=== PATIENT | female | born 1950 | race Caucasian/White ===

== ENCOUNTER 2017-07-09 05:15 | Inpatient (IN) | payer OTHER ==
[2017-06-16 13:10] VITALS: Ht 156.2 cm; Wt 124.0 kg
--- NOTE | 2017-06-16 13:38 | PAT Medication Instructions ---
Service Date Jun 16, 2017. Current Home Medication List Acetaminophen (Tylenol), 1,000 MG PO PRN Atorvastatin (Lipitor), 40 MG PO QAM Lisinopril & Hydrochlorothiazi (Zestoretic 20-12.5 mg), 1 TAB PO QAM Metformin Hcl (Glucophage), 1,000 MG PO QAM Warfarin Sod (Jantoven), 4 MG PO QPM Medication Instructions For Your Scheduled Surgery -Contact your autos disassembler and your prescriber for instructions for: Warfarin Sod (Jantoven), 4 MG PO QPM - Hold the following medications the morning of surgery: Lisinopril & Hydrochlorothiazi (Zestoretic 20-12.5 mg), 1 TAB PO QAM Metformin Hcl (Glucophage), 1,000 MG PO QAM - Take the following medications the morning of surgery with a sip of water: Acetaminophen (Tylenol), 1,000 MG PO PRN Atorvastatin (Lipitor), 40 MG PO QAM - Take the following medications as scheduled the night before surgery: Acetaminophen (Tylenol), 1,000 MG PO PRN (if needed) If you have any questions please call us at [phone] or [phone] or [phone]
[2017-06-16 14:34] LABS: BASO % 0.3 %; BASO ABS # 0.02 K/uL (0-0.2); EOS % 2.4 %; EOS ABS # 0.14 K/uL (0-0.5); HEMATOCRIT 41.6 % (37-47); HEMOGLOBIN 13.4 g/dL (12.0-16.0); IG# 0.01 K/uL (0.00-0.02); LYMPH % 30.9 %; LYMPH ABS # 1.83 K/uL (1.2-3.4); MEAN CELL VOLUME 91.4 fL (80-100); MEAN CORPUSCULAR HEMOGLOBIN 29.5 pg (25-34); MEAN CORPUSCULAR HGB CONC 32.2 g/dl (32-36); MEAN PLATELET VOLUME 9.5 fL (7.4-10.4); MONO % 5.4 %; MONO ABS # 0.32 K/uL (0.11-0.59); NEUT % 60.8 %; NEUT ABS # 3.61 K/uL (1.4-6.5); PLATELET COUNT 272 K/uL (130-400); RED CELL DISTRIBUTION WIDTH CV 13.8 % (11.5-14.5); WHITE BLOOD COUNT 5.93 K/uL (4.8-10.8)
[2017-06-16 14:41] LABS: INR 1.7 (0.9-1.1); PTT PATIENT 30.6 SECONDS (21.0-31.0)
--- NOTE | 2017-06-16 15:00 | DIAGNOSTIC IMAGING REPORT ---
CHEST 2 VIEWS ROUTINE HISTORY: Preop. COMPARISON: Chest 03/16/2015. FINDINGS: There are low lung volumes. Bibasilar linear densities suggestive of subsegmental atelectasis. No focal lung consolidations to suggest pneumonia. No evidence for pulmonary edema. No pleural effusions. No pneumothorax. The heart is mildly enlarged. This remains unchanged. Increased density at the lung bases likely secondary to overlapping soft tissue. IMPRESSION: No significant change compared to the prior study. No acute process. Stable mild cardiomegaly. Electronically signed by: George Camejo M.D. 06/16/2017 2:59 PM Dictated Date/Time: 06/16/2017 2:51 PM
[2017-06-16 16:05] LABS: ALBUMIN 3.5 gm/dl (3.4-5.0); CALCIUM 9.9 mg/dl (8.5-10.1); CREATININE 0.68 mg/dl (0.60-1.20); POTASSIUM 4.4 mmol/L (3.5-5.1)
[2017-06-17 06:18] LABS: HEMOGLOBIN A1C 5.8 % (4.5-5.6)
--- NOTE | 2017-07-08 18:12 | HISTORY & PHYSICAL EXAMINATION ---
DATE OF ADMISSION: 07/09/2017 CHIEF COMPLAINT: Chronic left knee pain. HISTORY OF PRESENT ILLNESS: This is a 67-year-old female patient of Dr. Johnson'zoie complaining of chronic left knee pain, longstanding, now progressively getting worse. The patient has failed conservative treatment including intra-articular injection, over the counter anti-inflammatories, the use of a cane. She is currently on Coumadin. The patient has increased pain with weightbearing activities and her pain does interfere with her activities of daily living. PAST MEDICAL HISTORY: Hypertension, hypercholesterolemia, history of pulmonary embolism, diabetes mellitus, rheumatoid arthritis, osteoarthritis, sciatica, and obesity. SOCIAL HISTORY: Nonsmoker, nondrinker. PAST SURGICAL HISTORY: Right total knee replacement. FAMILY HISTORY: Noncontributory. REVIEW OF SYSTEMS: The patient complains of chronic left knee pain; otherwise, denies any shortness of breath, chest pain, nausea, vomiting or any other joint complaints. MEDICATIONS: Metformin 1000 mg b.i.d., warfarin 5 mg daily as directed, atorvastatin 40 mg daily, and lisinopril 20 mg/12.5 daily. ALLERGIES: No known drug allergies. PHYSICAL EXAMINATION: GENERAL: Well-developed, well-nourished 67-year-old female, in no acute distress. She is alert and oriented x3 and pleasant. HEENT: Normocephalic, atraumatic. Extraocular motions are intact. Pupils are equal and reactive to light. HEART: Regular rate and rhythm, no murmurs appreciated. LUNGS: Clear. ABDOMEN: Soft and nontender. Bowel sounds are present. EXTREMITIES: Left knee reveals limited range of motion is 0-100. She has a varus deformity with crepitation. She has 4/5 strength. NEUROLOGIC: Neurovascularly, she is intact in her left lower extremity. DIAGNOSES: Left knee end-stage osteoarthritis, hypertension, hypercholesterolemia, history of pulmonary embolism, diabetes mellitus, rheumatoid arthritis, osteoarthritis, sciatica, and obesity. PLAN: The patient was advised of her diagnosis. Indications, risks, benefits, postop course have all been reviewed. The patient wished to proceed with a left total knee arthroplasty. Necessary consent form, preoperative testing and clearances will be obtained.
[2017-07-09] VITALS (9 sets, daily range): BP systolic 108–165; BP diastolic 67–83; PULSE 67–88; TEMP 36.7–37.3; O2SAT 91–98
[~2017-07-09] VITALS: Ht 156.2 cm; Wt 124.0 kg
[~2017-07-09 05:15] MED LIST: ACET-1256 PO; ATOR10TA82 PO; LISI-787 PO; METF-384 PO; WARF4TAB8 PO
[2017-07-09] MEDS ORDERED: lovenox (05:53)
[2017-07-09] MEDS ORDERED: LACTATED RINGER'S 1000ML 1,000 ML IV SCH (06:00)
[2017-07-09] MEDS ORDERED: FAMOTIDINE 20 MG TAB PO SCH (06:00)
[2017-07-09] MEDS ORDERED: LACTATED RINGER'S 1000ML 500 ML IV SCH (06:00)
[2017-07-09] MEDS ORDERED: CEFAZOLIN 3000MG IV PUSH 22.5 ML IV SCH (06:00)
[2017-07-09] MEDS ORDERED: CeleBREX 200 MG CAP PO SCH (06:00)
[2017-07-09] MEDS ORDERED: METOCLOPRAMIDE HCL 10 MG TAB PO SCH (06:00)
[2017-07-09] MEDS ORDERED: GABAPENTIN 300 MG CAP PO SCH (06:00)
[2017-07-09] MEDS ORDERED: ACETAMINOPHEN 500 MG TAB PO SCH (06:00)
[2017-07-09] MEDS ORDERED: ROPIVACAINE 5MG/ML 30 ML 150 MG, BUPIVACAINE 0.5% MPF INJ 30 ML, EpINEphrine HCL INJ 0.... INFIL SCH ×7 (06:00)
[2017-07-09] MEDS ORDERED: BUPIVACAINE 0.5 % 5 MG/1 ML PF 10ML VIAL ONE (06:15)
[2017-07-09] MEDS ORDERED: BUPIVACAINE 0.25% 30 ML VIAL ONE (06:15)
[2017-07-09] MEDS ORDERED: MIDAZOLAM HCL 1 MG/ML 2ML VIAL ONE (06:22)
[2017-07-09] MEDS ORDERED: FENTANYL CITRATE INJ 50 MCG/1 ML 2 ML VIAL ONE ×3 (06:22→08:08)
[2017-07-09] MEDS ORDERED: PROPOFOL IV EMULSION 10 MG/ML 20 ML VIAL IV ONE (06:22)
[2017-07-09 06:29] LABS: INR 1.1 (0.9-1.1); PTT PATIENT 27.8 SECONDS (21.0-31.0)
[2017-07-09] MEDS ORDERED: POVIDONE-IODINE OP SOLN 30 ML BTL ONE (06:55)
[2017-07-09] MEDS ORDERED: BACITRACIN 50000 UNIT VIAL ONE (06:55)
[2017-07-09] MEDS ORDERED: ORTHO JOINT ANESTHETIC ONE (06:55)
[2017-07-09] MEDS ORDERED: FENTANYL CITRATE INJ 50 MCG/1 ML 2 ML VIAL IV PRN (07:15)
[2017-07-09] MEDS ORDERED: EpHEDrine SULFATE INJ 50 MG/ML AMP IV PRN (07:15)
[2017-07-09] MEDS ORDERED: ONDANSETRON INJ 2 MG/ML 2 ML VIAL IV PRN ×2 (07:15→10:00)
[2017-07-09] MEDS ORDERED: ATROPINE SULFATE 0.1 MG/ML 5ML SYR IV PRN (07:15)
--- NOTE | 2017-07-09 07:17 | History & Physical Bridge Note ---
H&P Re-Evaluation Bridge Note: I have examined the patient, reviewed the History & Physical and in the interval since the performance of the History & Physical I have noted the following changes of clinical significance: No changes noted
[2017-07-09] MEDS ORDERED: SUCCINYLCHOLINE 100MG/5ML SYR IV ONE (07:56)
[2017-07-09] MEDS ORDERED: ONDANSETRON INJ 2 MG/ML 2 ML VIAL ONE (07:59)
[2017-07-09] MEDS ORDERED: DEXAMETHASONE SOD INJ 4 MG/ML VIAL ONE (07:59)
--- NOTE | 2017-07-09 09:33 | [facility] Post Operative Brief Note ---
Immediate Operative Summary Operative Date Jul 09, 2017. Pre-Operative Diagnosis Degenerative Joint Disease Left Knee Post-Operative Diagnosis Same as preop Procedure(s) Performed Left Total Knee arthroplasty,superficial wound vac Surgeon Dr. Aliyah Johnson Pipe Fitter Soft Copper Surgeon(s) Daniella Lafleur PAC Estimated Blood Loss 200ML Findings Consistent with Post-Op Diagnosis Specimens Left knee bone and tissue Drains 2 hemovac and superficial wound vac Anesthesia Type General Complication(s) none Disposition Disposition: Recovery Room / PACU
[2017-07-09] MEDS ORDERED: ZOLPIDEM TARTRATE 5 MG TAB PO PRN (10:00)
[2017-07-09] MEDS ORDERED: METOCLOPRAMIDE HCL INJ 5 MG/ML 2 ML VIAL IV PRN (10:00)
[2017-07-09] MEDS ORDERED: BISACODYL 10 MG SUPP PR PRN (10:00)
[2017-07-09] MEDS ORDERED: SOD PHOSPHATE/SOD BIPHOSPHATE ENEMA 132 ML BTL PR PRN (10:00)
[2017-07-09] MEDS ORDERED: MAGNESIUM HYDROXIDE SUSP 30 ML UDC PO PRN (10:00)
[2017-07-09] MEDS ORDERED: TRAMADOL HCL 50 MG TAB PO PRN (10:00)
[2017-07-09] MEDS ORDERED: MoRPHine SULFATE 2 MG/ML CARP IV PRN (10:00)
--- NOTE | 2017-07-09 10:34 | Anesthesiology Progress Note ---
Anesthesia Post Op Note Date & Time Jul 09, 2017 at 10:34 Vital Signs Pain Intensity: 4 Vital Signs Past 12 Hours Date Time Temp Pulse Resp B/P (MAP) Pulse Ox O2 Delivery O2 Flow Rate FiO2 07/09/17 10:33 37.6 07/09/17 10:31 139/60 07/09/17 10:27 67 23 07/09/17 10:27 66 23 95 07/09/17 10:26 122/54 07/09/17 10:22 69 23 07/09/17 10:22 69 23 95 07/09/17 10:21 124/57 07/09/17 10:17 69 23 95 07/09/17 10:17 69 23 07/09/17 10:16 74 22 145/58 95 07/09/17 10:16 74 22 07/09/17 10:11 75 18 07/09/17 10:11 77 18 129/61 95 07/09/17 10:06 73 30 07/09/17 10:06 75 30 135/57 94 07/09/17 10:01 72 22 07/09/17 10:01 74 22 142/63 96 07/09/17 09:57 144/64 07/09/17 09:56 37.3 74 15 144/64 94 Oxymask 15 07/09/17 09:56 78 20 07/09/17 09:56 81 20 94 07/09/17 06:00 37.3 88 18 165/73 93 Room Air Notes Mental Status: alert / awake / arousable, participated in evaluation Pt Amnestic to Procedure: Yes Nausea / Vomiting: adequately controlled Pain: adequately controlled Airway Patency, RR, SpO2: stable & adequate BP & HR: stable & adequate Hydration State: stable & adequate Neuraxial Anesthesia: was administered, sensory block is resolving Anesthetic Complications: no major complications apparent
--- NOTE | 2017-07-09 10:41 | DIAGNOSTIC IMAGING REPORT ---
LEFT KNEE 2 VIEWS History: Left total knee arthroplasty. Degenerative arthritis. Postop. FINDINGS: The patient is status post a left total knee arthroplasty. The hardware is intact. No fracture or dislocation. Skin bo and surgical drains are in place. IMPRESSION: Left total knee arthroplasty. No evidence for hardware complication. Electronically signed by: George Camejo M.D. 07/09/2017 10:39 AM Dictated Date/Time: 07/09/2017 10:38 AM
[2017-07-09] MEDS ORDERED: DEXTROSE 50% 50 ML SYR IV PRN ×2 (11:45→16:45)
[2017-07-09] MEDS ORDERED: GLUCOSE 10 TABS/TUBE PO PRN ×2 (11:45→16:45)
[2017-07-09] MEDS ORDERED: GLUCOSE 40% GEL 15 GM TUBE PO PRN ×2 (11:45→16:45)
[2017-07-09] MEDS ORDERED: GLUCAGON FOR INJ 1 MG VIAL SQ PRN ×2 (11:45→16:45)
[2017-07-09] MEDS ORDERED: INSULIN ASPART 100 UNITS/ML 3 ML PEN SC SCH (12:00)
[2017-07-09] MEDS ORDERED: MoRPHine SULFATE 4 MG/ML 1 ML CARP\\VIAL IV PRN ×2 (12:00→18:30)
[2017-07-09] MEDS: SODIUM CHLORIDE 0.9% 1000ML 1,000 ML IV SCH ×2 (13:25→21:45)
[2017-07-09] MEDS: ACETAMINOPHEN 500 MG TAB PO SCH ×2 (13:27→21:45)
[2017-07-09] MEDS ORDERED: NURSING VERBAL MED ORDER ONE ×3 (14:00→20:30)
--- NOTE | 2017-07-09 15:34 | [facility] Operative Report ---
Operative Report Operative Date Jul 09, 2017. Pre-Operative Diagnosis Degenerative Joint Disease Left Knee, obesity 50.8 BMI Post-Operative Diagnosis Same, obesity 50.8 BMI Procedure(s) Performed Left total knee arthroplasty application superficial wound VAC Surgeon Dr. Aliyah Johnson Core Worker Surgeon(s) Daniella Lafleur PAC Estimated Blood Loss 200ML Findings Severe tricompartmental DJD notch stenosis chronic ACL tear grade 4 medial compartment bone loss medial compartment medial femoral subluxation on tibia grade 3-4 patellofemoral DJD, varus knee Specimens Left knee bone and tissue Drains 2 hemovac and superficial wound vac Anesthesia General regional orthomix Complication(s) None Disposition Recovery Room / PACU Indications 67-year-old female history of obesity very severe bilateral knee DJD successful right knee replacement and now with disabling left knee pain wants proceed with left knee replacement Description of Procedure The patient was taken to the operating room and anesthetized under general anesthetic regional block. Patient was placed supine on the the operating table. A pneumatic tourniquet was placed about the left upper thigh. The knee exam demonstrated very limited range of motion full extension but flexion only to 90. The left lower extremity was prepped and draped with ChloraPrep in usual sterile fashion. An anterior longitudinal incision was made across the knee. Skin flaps were elevated. An incision was made into the medial retinaculum and extended up into the mid third of the quadriceps tendon and extended down to the tibial tubercle. Intra-articular findings demonstrated severe tricompartmental DJD bone loss medial compartment medial tibial plateau chronic ACL tear notch stenosis tricompartmental osteophytes severe. The knee was exposed by excising the posterior cruciate ligament and menisci. The infrapatellar fat pad was resected. The fat pad over the anterior femur at the upper aspect of the articular surface was resected for placement of the component in that area. A subperiosteal peel lateral release was performed around the patella. Some partial synovectomy was performed in the suprapatellar pouch area. The everyArtn total knee arthroplasty system was utilized for the procedure. The drill hole was made into the intramedullary canal and the guide lucio was placed. Standard distal femoral cut was made in 5 valgus. The sizing guide was placed and the femur sized for a 5 component. Drill holes were made in 3 of external rotation to match epicondylar axis. She had some AP ML mismatch but 5 was the best fit. The size 5 ,4 in 1 cutting block was placed. The anterior posterior and chamfer cuts were made. The knee was extended and a free hand cut technique was performed to the patella. The patella with was measured and the width was reproduced using a 33 x 9 mm patella component. 3 drill holes are made for the patella component pegs. The tibia was then subluxed. The external tibial cutting guide was pinned in position and the proximal tibial cut was made with the oscillating saw. The size 4 tibial trial was externally rotated in line with the tibial tubercle and pinned in position. The punch for the stem was used and the femoral notch cutting device was positioned appropriately and the notch cut was made and the femoral trial was placed. Tibial trials were used for the insert. The size 13 trial gave balanced ligaments through full range of motion. Patella tracking was assessed with range of motion. The patella tracked centrally. The trials were removed. The Orthomix anesthetic cocktail was injected per protocol. The cut bone surfaces and soft tissue were copiously irrigated with antibiotic solution with bacitracin. The final components were cemented with Simplex cement. The final components were Striker triathlon 5 left posterior stabilized femoral component for primary tibial baseplate 4 x 13 mm posterior stabilized X3 poly-insert S 33 x 9 mm X3 poly-patella. While the cement cured the Betadine soak was used per protocol. When the cement cured the knee was copiously irrigated with pulsatile lavage antibiotic solution with bacitracin. 2 drains were brought out laterally connected to Hemovac. The quadriceps tendon and medial retinaculum were closed with interrupted figure-of- eight #1 Vicryl sutures. The knee was taken through full range of motion and repair was secure. The subcutaneous tissues were closed with 2-0 Vicryl sutures. The skin was closed with bo. A superficial wound VAC was applied. The tourniquet was let down and the patient had good capillary refill to the extremity. The patient tolerated the procedure well. My physician certified medical technician assistant Mike ROBLES assisted in the procedure including prepping draping leg positioning soft tissue retraction instrument management and assisted in the closure ,dressings application and will participate in postoperative care the patient. I attest to the content of the Intraoperative Record and any orders documented therein. Any exceptions are noted below.
[2017-07-09] MEDS: CEFAZOLIN IV 2,000 MG in SYRINGE 0 ML IV SCH (16:29)
[2017-07-09] MEDS: INSULIN ASPART 100 UNITS/ML 3 ML PEN SC SCH ×2 (18:08→20:57)
[2017-07-09] MEDS ORDERED: WARFARIN TAB 10 MG, WARFARIN TAB 2.5 MG PO ONE ×4 (18:45→21:00)
--- NOTE | 2017-07-09 19:34 | Medical Consult ---
Consultation Date of Consultation: Jul 09, 2017. Attending Physician: Oleksandr Johnson M.D. Reason for Consultation: Medical management History of Present Illness Pt is 67 y/o F with PMH PE on coumadin, DM II, HTN, HLD, OA, obesity is seen in medical consult. Pt s/p L TKA by Dr Johnson. Pt reports pain controlled. Denies any numbness/tingling to LLE. Pt coumadin was held and on lovenox bridge. Her coumadin to be resumed tonight and lovenox BID. Last BM last night. Eating and drinking well. Denies fever/chills, diaphoresis, N/V/D/C, SYKES, dizziness, syncope , vision changes, neck pain, CP, SOB, orthopnea, palpitations, cough, sore throat, choking, otalgia, rhinorrhea, abdominal pain, extremity edema, rashes, urinary symptoms. Past Medical/Surgical History Medical Problems: (1) Diabetes mellitus Status: Chronic (2) Dyslipidemia Status: Chronic (3) Fatty tumor Permanent Comment: removed from left foot Status: Resolved (4) HTN (hypertension) Status: Chronic (5) Left knee DJD Status: Chronic (6) Pulmonary embolism Status: Chronic Surgical Problems: (1) Hx of arthroscopy of left knee Status: Resolved (2) Hx of arthroscopy of right knee Permanent Comment: 2015 Status: Resolved Family History FH: CAD (coronary artery disease) Social History Smoking Status: Never Smoker Smokeless Tobacco Use: No Alcohol Use: none Drug Use: none Marital Status: Housing Status: lives with significant other Allergies Coded Allergies: No Known Allergies (Unverified , 07/09/17) Current Inpatient Medications Current Inpatient Medications Medications (Trade) Dose Ordered Sig/Geronimo Route Start Time Stop Time Status Last Admin Dose Admin Lactated Ringer's 1,000 ml @ 15 mls/hr Q24H IV 07/09/17 06:00 07/10/17 05:59 Cefazolin Sodium 22.5 ml @ 4.5 mls/min PREOP IV 07/09/17 06:00 07/09/17 18:00 07/09/17 07:26 4.5 MLS/MIN Acetaminophen (Tylenol Tab) 1,000 mg PREOP PO 07/09/17 06:00 07/09/17 18:00 07/09/17 06:13 1,000 MG Celecoxib (CeleBREX CAP) 200 mg PREOP PO 07/09/17 06:00 07/09/17 18:00 07/09/17 06:13 200 MG Famotidine (Pepcid Tab) 20 mg PREOP PO 07/09/17 06:00 07/09/17 18:00 07/09/17 06:13 20 MG Gabapentin (Neurontin Cap) 300 mg PREOP PO 07/09/17 06:00 07/09/17 18:00 07/09/17 06:12 300 MG Metoclopramide HCl (Reglan Tab) 10 mg PREOP PO 07/09/17 06:00 07/09/17 18:00 07/09/17 06:12 10 MG Atorvastatin Calcium (Lipitor Tab) 40 mg QAM PO 07/10/17 09:00 08/09/17 08:59 HCTZ/Lisinopril (Prinzide 20-12.5MG Tab) 1 tab QAM PO 07/10/17 09:00 08/09/17 08:59 Warfarin Sodium (Coumadin Tab) 4 mg QPM PO 07/09/17 21:00 08/08/17 20:59 Sodium Chloride 1,000 ml @ 100 mls/hr Q10H IV 07/09/17 11:45 07/10/17 11:44 07/09/17 13:25 100 MLS/HR Cefazolin Sodium 2000 mg/Syringe 15 ml @ 3.75 mls/ min Q8H IV 07/09/17 16:00 07/10/17 00:03 07/09/17 16:29 3.75 MLS/MIN Oxycodone HCl (Roxicodone Immediate Rel Tab) 1 TABLET FOR PAIN RATING... Q4H PRN PO 07/09/17 10:00 07/23/17 09:59 Morphine Sulfate (MoRPHine SULFATE INJ) 2 mg Q2H PRN IV 07/09/17 10:00 07/23/17 09:59 Acetaminophen (Tylenol Tab) 1,000 mg Q8 PO 07/09/17 14:00 08/08/17 13:59 07/09/17 13:27 1,000 MG Magnesium Hydroxide (Milk Of Magnesia Susp) 30 ml Q6H PRN PO 07/09/17 10:00 08/08/17 09:59 Bisacodyl (Dulcolax Supp) 10 mg DAILY PRN [place] 07/09/17 10:00 08/08/17 09:59 Sodium Biphosphate/ Sodium Phosphate (Fleet Enema) 132 ml DAILY PRN [place] 07/09/17 10:00 08/08/17 09:59 Docusate Sodium (coLACE CAP) 100 mg BID PO 07/09/17 21:00 08/08/17 20:59 Diphenhydramine HCl (Benadryl Cap) 25 mg Q8H PRN PO 07/09/17 10:00 08/08/17 09:59 Zolpidem Tartrate (Ambien Tab) 5 mg HSZ PRN PO 07/09/17 10:00 08/08/17 09:59 Multivitamins (Multivitamin Tab) 1 tab QAM PO 07/10/17 09:00 08/09/17 08:59 Ondansetron HCl (Zofran Inj) 4 mg Q6H PRN IV 07/09/17 10:00 08/08/17 09:59 Metoclopramide HCl (Reglan Inj) 10 mg Q6H PRN IV 07/09/17 10:00 08/08/17 09:59 Pantoprazole Sodium (Protonix Tab) 40 mg QAM PO 07/10/17 09:00 07/13/17 09:01 Tramadol HCl (Ultram Tab) 1 tablet for pain rating... Q4H PRN PO 07/09/17 10:00 08/08/17 09:59 Insulin Aspart (novoLOG ASPART) SLIDING SCALE G... ACHS SC 07/09/17 12:00 08/08/17 11:59 07/09/17 13:28 4 UNITS Glucose (Glucose 40% Gel) 15-30 GRAMS 15 GRAMS... UD PRN PO 07/09/17 11:45 08/08/17 11:44 Glucose (Glucose Chew Tab) 4-8 Tablets 4 Tabl... UD PRN PO 07/09/17 11:45 08/08/17 11:44 Dextrose (Dextrose 50% 50ML Syringe) 25-50ML OF 50% DW IV FOR... UD PRN IV 07/09/17 11:45 08/08/17 11:44 Glucagon (Glucagon Inj) 1 mg UD PRN SQ 07/09/17 11:45 08/08/17 11:44 Morphine Sulfate (MoRPHine SULFATE INJ) 2 mg Q2H PRN IV 07/09/17 12:00 07/23/17 11:59 Enoxaparin Sodium (Lovenox Inj) 120 mg Q12 SQ 07/10/17 09:00 08/09/17 08:59 Insulin Aspart (novoLOG ASPART) SLIDING SCALE If C... ACHS SC 07/09/17 17:15 08/08/17 17:14 UNV Glucose (Glucose 40% Gel) 15-30 GRAMS 15 GRAMS... UD PRN PO 07/09/17 16:45 08/08/17 16:44 UNV Glucose (Glucose Chew Tab) 4-8 Tablets 4 Tabl... UD PRN PO 07/09/17 16:45 08/08/17 16:44 UNV Dextrose (Dextrose 50% 50ML Syringe) 25-50ML OF 50% DW IV FOR... UD PRN IV 07/09/17 16:45 08/08/17 16:44 UNV Glucagon (Glucagon Inj) 1 mg UD PRN SQ 07/09/17 16:45 08/08/17 16:44 UNV Review of Systems See HPI for pertinent positives & negatives. All other systems reviewed and were otherwise negative Physical Exam Date Time Temp Pulse Resp B/P (MAP) Pulse Ox O2 Delivery O2 Flow Rate FiO2 07/09/17 14:56 36.9 72 16 132/81 (98) 95 Nasal Cannula 3.0 07/09/17 13:33 36.8 68 16 145/83 (103) 95 3.0 07/09/17 12:19 75 16 153/79 (103) 95 3.0 07/09/17 11:23 69 16 127/70 (89) 98 3.0 07/09/17 11:00 Nasal Cannula 3.0 07/09/17 11:00 36.7 70 18 131/72 (91) 97 Nasal Cannula 3.0 07/09/17 11:00 Nasal Cannula 3.0 07/09/17 10:42 66 23 07/09/17 10:42 65 23 95 07/09/17 10:41 124/60 3/8/18 10:37 60 23 07/09/17 10:37 68 23 95 07/09/17 10:36 130/60 07/09/17 10:33 37.6 07/09/17 10:32 70 24 07/09/17 10:32 68 24 96 07/09/17 10:31 139/60 07/09/17 10:27 67 23 07/09/17 10:27 66 23 95 07/09/17 10:26 122/54 07/09/17 10:22 69 23 07/09/17 10:22 69 23 95 07/09/17 10:21 124/57 07/09/17 10:17 69 23 95 07/09/17 10:17 69 23 07/09/17 10:16 74 22 145/58 95 07/09/17 10:16 74 22 07/09/17 10:11 75 18 07/09/17 10:11 77 18 129/61 95 07/09/17 10:06 73 30 07/09/17 10:06 75 30 135/57 94 07/09/17 10:01 72 22 07/09/17 10:01 74 22 142/63 96 07/09/17 09:57 144/64 07/09/17 09:56 37.3 74 15 144/64 94 Oxymask 15 07/09/17 09:56 78 20 07/09/17 09:56 81 20 94 07/09/17 06:00 37.3 88 18 165/73 93 Room Air General Appearance: no apparent distress, + obese Head: normocephalic, atraumatic Eyes: normal inspection, PERRL, EOMI, sclerae normal ENT: hearing grossly normal, pharynx normal, + pertinent finding (mucous membranes moist) Neck: supple, no JVD, trachea midline Respiratory/Chest: lungs clear, normal breath sounds, no respiratory distress Cardiovascular: regular rate, rhythm, no murmur, normal peripheral pulses Abdomen/GI: normal bowel sounds, non tender, soft Extremities/Musculoskelatal: normal capillary refill, no pedal edema, + pertinent finding (Left knee with dressing in place and limited active flexion, remaining extremities with ROM intact. pedal pushes and pulls intact bilaterally. distal pulses intact, sensation to light touch intact) Neurologic/Psych: alert, normal mood/affect, oriented x 3 Skin: normal color, warm/dry Laboratory Results Last 24 Hours Test 07/09/17 05:49 07/09/17 06:00 07/09/17 10:04 07/09/17 11:29 Bedside Glucose 112 mg/dl 155 mg/dl 145 mg/dl Prothrombin Time 11.5 SECONDS Prothromb Time International Ratio 1.1 Activated Partial Thromboplast Time 27.8 SECONDS Partial Thromboplastin Ratio 1.1 Assessment & Plan Pt post op day# 0 S/P L TKA by Dr Johnson -pain management per ortho -wound management per ortho -PT/OT as appropriate -DVT prophylaxis per ortho -incentive spirometry -monitor H&H for acute blood loss anemia HX PE ON COUMADIN Pt had coumadin held, bridged with lovenox for surgery. Denies CP/SOB. Vitals stable. Coumadin clinic note reviewed and recommends coumadin 12.5mg on 07/09/17 & 07/10/17, then 10mg on 07/11/17, then resuming pt's current schedule of 7.5mg MWF , and 5mg all other days. -will dose coumadin tonight with lovenox bridge until therapeutic. Monitor INR and dose Coumadin accordingly DM II HA1c 5.8 in 06/2017 -hold metformin -NovoLog sliding scale per protocol HTN stable -continue lisinopril/HCTZ HYPERLIPIDEMIA -continue atorvastatin DVT Prophylaxis -lovenox, coumadin Disposition admitted med/surg Full Code as per discussion with pt Follows with S[facility] Post for routine care Pt was seen with Dr Ndiaye. See addendum Attending addendum. The patient was seen and examined by me this afternoon. Status post left TKA. She does not have any complaint except some pain in the left knee. She denies of any chest pain shortness of breath any palpitations, has not had any abdominal pain nausea and/or vomiting, denies to have any numbness or tingling in the extremities. On examination. She is hemodynamically stable. Her labs are unremarkable. She seems to be reasonably stable at this time. Her labs and imaging studies reviewed. Assessment and plan reviewed as well. Agree with assessment and plan Dr. Liv Ndiaye. Additional Copies To Sohan Webber PA-C
[2017-07-09] MEDS: WARFARIN SOD 4 MG TAB PO SCH (20:57)
[2017-07-09] MEDS ORDERED: WARFARIN SOD 4 MG TAB PO SCH (21:00)
[2017-07-09] MEDS ORDERED: WARFARIN SOD 10 MG TAB PO ONE (21:00)
[2017-07-09] MEDS: DOCUSATE SODIUM 100 MG CAP PO SCH (21:03)
[2017-07-10] VITALS (7 sets, daily range): BP systolic 132–139; BP diastolic 72–88; PULSE 70–78; TEMP 36.3–36.9; O2SAT 93–97
[2017-07-10] MEDS: CEFAZOLIN IV 2,000 MG in SYRINGE 0 ML IV SCH (00:25)
[2017-07-10] MEDS: OXYCODONE HCL IR 5 MG TAB (IMMEDIATE RELEASE) PO PRN ×4 (00:26→20:55)
[2017-07-10] MEDS: ACETAMINOPHEN 500 MG TAB PO SCH ×3 (05:59→21:43)
[2017-07-10 07:08] LABS: HEMATOCRIT 32.4 % (37-47); HEMOGLOBIN 10.5 g/dL (12.0-16.0); MEAN CELL VOLUME 91.5 fL (80-100); MEAN CORPUSCULAR HEMOGLOBIN 29.7 pg (25-34); MEAN CORPUSCULAR HGB CONC 32.4 g/dl (32-36); PLATELET COUNT 220 K/uL (130-400); RED CELL DISTRIBUTION WIDTH CV 14.4 % (11.5-14.5); RED CELL DISTRIBUTION WIDTH SD 48.4 fL (36.4-46.3); WHITE BLOOD COUNT 7.52 K/uL (4.8-10.8)
[2017-07-10 07:14] LABS: INR 1.1 (0.9-1.1)
[2017-07-10 07:44] LABS: CALCIUM 8.5 mg/dl (8.5-10.1); CREATININE 0.72 mg/dl (0.60-1.20); POTASSIUM 4.1 mmol/L (3.5-5.1)
[2017-07-10] MEDS: SODIUM CHLORIDE 0.9% 1000ML 1,000 ML IV SCH (08:05)
--- NOTE | 2017-07-10 08:11 | Orthopedic Progress Note ---
Orthopedic Progress Note Date of Service Jul 10, 2017. Subjective Post OP Day: 1 Reports: feeling well, pain controlled w PO medications, Denies: complaints, chest pain, SOB, nausea / vomiting, calf pain Objective calves soft nontender, N/V intact, capillary refill less than 2 sec., dressing C /D/I, A&O x3, toes mobile Date Time Temp Pulse Resp B/P (MAP) Pulse Ox O2 Delivery O2 Flow Rate FiO2 07/10/17 07:55 36.7 78 16 132/86 (101) 97 Room Air 07/10/17 02:58 36.3 71 16 139/73 (95) 93 Room Air 07/10/17 00:17 Room Air 07/09/17 22:42 36.9 67 15 108/67 (81) 91 Room Air 07/09/17 18:37 36.9 68 18 142/81 (101) 92 Room Air 07/09/17 18:19 94 Room Air 07/09/17 15:20 Nasal Cannula 3.0 07/09/17 14:56 36.9 72 16 132/81 (98) 95 Nasal Cannula 3.0 07/09/17 13:33 36.8 68 16 145/83 (103) 95 3.0 07/09/17 12:19 75 16 153/79 (103) 95 3.0 07/09/17 11:23 69 16 127/70 (89) 98 3.0 07/09/17 11:00 Nasal Cannula 3.0 07/09/17 11:00 36.7 70 18 131/72 (91) 97 Nasal Cannula 3.0 07/09/17 11:00 Nasal Cannula 3.0 07/09/17 10:42 66 23 07/09/17 10:42 65 23 95 07/09/17 10:41 124/60 07/09/17 10:37 60 23 07/09/17 10:37 68 23 95 07/09/17 10:36 130/60 07/09/17 10:33 37.6 07/09/17 10:32 70 24 07/09/17 10:32 68 24 96 07/09/17 10:31 139/60 07/09/17 10:27 67 23 07/09/17 10:27 66 23 95 07/09/17 10:26 122/54 07/09/17 10:22 69 23 07/09/17 10:22 69 23 95 07/09/17 10:21 124/57 07/09/17 10:17 69 23 95 07/09/17 10:17 69 23 07/09/17 10:16 74 22 145/58 95 07/09/17 10:16 74 22 07/09/17 10:11 75 18 07/09/17 10:11 77 18 129/61 95 07/09/17 10:06 73 30 07/09/17 10:06 75 30 135/57 94 07/09/17 10:01 72 22 07/09/17 10:01 74 22 142/63 96 07/09/17 09:57 144/64 07/09/17 09:56 37.3 74 15 144/64 94 Oxymask 15 07/09/17 09:56 78 20 07/09/17 09:56 81 20 94 Laboratory Results 24 Hours: Test 07/10/17 06:37 Hematocrit 32.4 % Hemoglobin 10.5 g/dL Prothromb Time International Ratio 1.1 Prothrombin Time 11.3 SECONDS Assessment & Plan Assessment: POD #1, Left TKA Plan: PT/ OT DVT proph- Coumadin, Lovenox D/C plans- Home w HH As per medicine. Inhouse Planning Pain Management: Ultram, Morphine, PO Tylenol, Oxy IR DVT Prophylaxis: TEDs, SCDs, Coumadin, Lovenox Discharge Planning Discharge Planning: home with home health Pain Management: PO Tylenol, Oxy IR DVT Prophylaxis: TEDs, Coumadin, Lovenox Therapy: Physical Therapy, Occupational Therapy
[2017-07-10] MEDS: INSULIN ASPART 100 UNITS/ML 3 ML PEN SC SCH ×4 (09:00→20:57)
[2017-07-10] MEDS: ENOXAPARIN 120 MG/0.8 ML SYR SQ SCH ×2 (09:04→20:58)
[2017-07-10] MEDS: DOCUSATE SODIUM 100 MG CAP PO SCH ×2 (09:11→20:57)
[2017-07-10] MEDS: ATORVASTATIN 40 MG TAB PO SCH (09:11)
[2017-07-10] MEDS: MULTIVITAMIN TAB PO SCH (09:12)
[2017-07-10] MEDS: LISINOPRIL/HCTZ 20/12.5MG TAB PO SCH (09:12)
[2017-07-10] MEDS: PANTOprazole SOD 40 MG TAB PO SCH (09:13)
--- NOTE | 2017-07-10 10:04 | Anesthesiology Progress Note ---
Anesthesia Post Op Note Date & Time Jul 10, 2017 at 10:04 Vital Signs Pain Intensity: 8.0 Vital Signs Past 12 Hours Date Time Temp Pulse Resp B/P (MAP) Pulse Ox O2 Delivery O2 Flow Rate FiO2 07/10/17 07:55 36.7 78 16 132/86 (101) 97 Room Air 07/10/17 02:58 36.3 71 16 139/73 (95) 93 Room Air 07/10/17 00:17 Room Air 07/09/17 22:42 36.9 67 15 108/67 (81) 91 Room Air Notes Mental Status: alert / awake / arousable, participated in evaluation Pt Amnestic to Procedure: Yes Nausea / Vomiting: adequately controlled Pain: adequately controlled, improving with treatment Airway Patency, RR, SpO2: stable & adequate BP & HR: stable & adequate Hydration State: stable & adequate Anesthetic Complications: no major complications apparent
[2017-07-10] MEDS: WARFARIN SOD 4 MG TAB PO SCH (15:36)
[2017-07-10] MEDS ORDERED: WARFARIN TAB 10 MG, WARFARIN TAB 2.5 MG PO SCH ×2 (16:00)
[2017-07-10] MEDS ORDERED: WARFARIN SOD 10 MG TAB PO ONE (16:00)
--- NOTE | 2017-07-10 18:24 | Progress Note ---
Internal Med Progress Note Date of Service: Jul 10, 2017. Provider Documentation: SUBJECTIVE: The patient was seen and examined S/P Left TKA Minimal pain No other symptoms OBJECTIVE: Vital Signs-as noted below Exam: General-No distress at rest Eyes-normal ENT-normal Neck-supple Lungs-Clear to auscultate bilaterally Heart-Regular,no murmur Abdomen-Benign Extremities-tarec edema bilaterally Neuro-AAox3 Lab data as noted below. ASSESSMENT & PLAN: Pt post op day# 1 S/P L TKA by Dr Johnson -pain management per ortho,wound management per ortho -PT/OT as appropriate -DVT prophylaxis per ortho -incentive spirometry -monitor H&H -minimally decreased Hb -will recheck in AM HX PE ON COUMADIN Pt had coumadin held, bridged with lovenox for surgery. Denies CP/SOB. Vitals stable. Coumadin clinic note reviewed and recommends coumadin 12.5mg on 07/09/17 & 07/10/17, then 10mg on 07/11/17, then resuming pt's current schedule of 7.5mg MWF , and 5mg all other days. -will dose Coumadin tonight with lovenox bridge until therapeutic. -Monitor INR and dose Coumadin accordingly -will take a few days to stabilize DM II HA1c 5.8 in 06/2017 -hold metformin -NovoLog sliding scale per protocol -Blood sugar is maintained HTN -continue lisinopril/HCTZ -controlled HYPERLIPIDEMIA -continue atorvastatin DVT Prophylaxis -Lovenox, Coumadin Disposition admitted med/surg Full Code as per discussion with pt Follows with Sohan Post for routine care Vital Signs: Date Time Temp Pulse Resp B/P (MAP) Pulse Ox O2 Delivery O2 Flow Rate FiO2 07/10/17 15:30 96 Room Air 07/10/17 15:21 36.9 76 18 137/81 (99) 96 Room Air 07/10/17 11:37 36.6 75 16 132/88 (103) 93 Room Air 07/10/17 10:17 97 Room Air 07/10/17 07:55 36.7 78 16 132/86 (101) 97 Room Air 07/10/17 07:50 Room Air 07/10/17 02:58 36.3 71 16 139/73 (95) 93 Room Air 07/10/17 00:17 Room Air 07/09/17 22:42 36.9 67 15 108/67 (81) 91 Room Air 07/09/17 18:37 36.9 68 18 142/81 (101) 92 Room Air Lab Results: Results Past 24 Hours Test 07/09/17 20:37 07/10/17 06:37 07/10/17 08:09 07/10/17 12:05 Range/Units Bedside Glucose 130 104 116 70-90 mg/dl White Blood Count 7.52 4.8-10.8 K/uL Red Blood Count 3.54 4.2-5.4 M/uL Hemoglobin 10.5 12.0-16.0 g/dL Hematocrit 32.4 37-47 % Mean Corpuscular Volume 91.5 80-100 fL Mean Corpuscular Hemoglobin 29.7 25-34 pg Mean Corpuscular Hemoglobin Concent 32.4 32-36 g/dl RDW Standard Deviation 48.4 36.4-46.3 fL RDW Coefficient of Variation 14.4 11.5-14.5 % Platelet Count 220 130-400 K/uL Mean Platelet Volume 9.0 7.4-10.4 fL Prothrombin Time 11.3 9.0-12.0 SECONDS Prothromb Time International Ratio 1.1 0.9-1.1 Sodium Level 141 136-145 mmol/L Potassium Level 4.1 3.5-5.1 mmol/L Chloride Level 107 98-107 mmol/L Carbon Dioxide Level 30 21-32 mmol/L Anion Gap 4.0 3-11 mmol/L Blood Urea Nitrogen 26 7-18 mg/dl Creatinine 0.72 0.60-1.20 mg/dl Est Creatinine Clear Calc Drug Dose 93.2 ml/min Estimated GFR () 99.7 Estimated GFR (Non- 86.1 BUN/Creatinine Ratio 35.3 10-20 Random Glucose 112 70-99 mg/dl Calcium Level 8.5 8.5-10.1 mg/dl Test 07/10/17 17:04 Range/Units Bedside Glucose 123 70-90 mg/dl
[2017-07-10] MEDS ORDERED: WARFARIN SOD 7.5 MG TAB PO ONE (19:00)
[2017-07-11] MEDS: OXYCODONE HCL IR 5 MG TAB (IMMEDIATE RELEASE) PO PRN ×2 (05:28→10:43)
[2017-07-11] MEDS: ACETAMINOPHEN 500 MG TAB PO SCH (05:28)
[2017-07-11 06:38] LABS: INR 1.7 (0.9-1.1)
[2017-07-11 06:42] LABS: HEMATOCRIT 33.6 % (37-47); HEMOGLOBIN 10.8 g/dL (12.0-16.0); MEAN CELL VOLUME 92.1 fL (80-100); MEAN CORPUSCULAR HEMOGLOBIN 29.6 pg (25-34); MEAN CORPUSCULAR HGB CONC 32.1 g/dl (32-36); MEAN PLATELET VOLUME 9.4 fL (7.4-10.4); PLATELET COUNT 193 K/uL (130-400); RED CELL DISTRIBUTION WIDTH CV 14.6 % (11.5-14.5); RED CELL DISTRIBUTION WIDTH SD 49.5 fL (36.4-46.3); WHITE BLOOD COUNT 7.43 K/uL (4.8-10.8)
[2017-07-11 07:24] LABS: CALCIUM 8.8 mg/dl (8.5-10.1); CREATININE 0.63 mg/dl (0.60-1.20); POTASSIUM 4.3 mmol/L (3.5-5.1)
[2017-07-11 07:46] VITALS: BP 144/80; PULSE 73; TEMP 36.7; O2SAT 97
[2017-07-11] MEDS: MULTIVITAMIN TAB PO SCH (08:40)
[2017-07-11] MEDS: LISINOPRIL/HCTZ 20/12.5MG TAB PO SCH (08:40)
[2017-07-11] MEDS: ATORVASTATIN 40 MG TAB PO SCH (08:40)
[2017-07-11] MEDS: DOCUSATE SODIUM 100 MG CAP PO SCH (08:40)
[2017-07-11] MEDS: PANTOprazole SOD 40 MG TAB PO SCH (08:40)
[2017-07-11] MEDS: ENOXAPARIN 120 MG/0.8 ML SYR SQ SCH (08:41)
[2017-07-11] MEDS: INSULIN ASPART 100 UNITS/ML 3 ML PEN SC SCH (08:42)
--- NOTE | 2017-07-11 10:01 | Orthopedic Progress Note ---
Orthopedic Progress Note Date of Service Jul 11, 2017. Subjective Post OP Day: 2 Reports: feeling well, pain controlled w PO medications, Denies: chest pain, SOB , nausea / vomiting, light headedness, calf pain Objective calves soft nontender, N/V intact, capillary refill less than 2 sec., dressing C /D/I, A&O x3, toes mobile Date Time Temp Pulse Resp B/P (MAP) Pulse Ox O2 Delivery O2 Flow Rate FiO2 07/11/17 07:46 36.7 73 19 144/80 (101) 97 Room Air 07/11/17 00:15 Room Air 07/10/17 23:06 36.4 70 16 132/72 (92) 93 Room Air 07/10/17 15:30 96 Room Air 07/10/17 15:21 36.9 76 18 137/81 (99) 96 Room Air 07/10/17 11:37 36.6 75 16 132/88 (103) 93 Room Air 07/10/17 10:17 97 Room Air Laboratory Results 24 Hours: Test 07/11/17 06:02 Hematocrit 33.6 % Hemoglobin 10.8 g/dL Prothromb Time International Ratio 1.7 Prothrombin Time 17.2 SECONDS Assessment & Plan Assessment: POD #2, Left TKA Plan: PT/ OT DVT proph- Coumadin, Lovenox D/C plans- Home w HH As per medicine. Inhouse Planning Pain Management: Ultram, PO Tylenol, Oxy IR DVT Prophylaxis: TEDs, SCDs, Coumadin, Lovenox Discharge Planning Discharge Planning: home with home health Pain Management: PO Tylenol, Oxy IR DVT Prophylaxis: TEDs, Coumadin, Lovenox Therapy: Physical Therapy, Occupational Therapy
--- NOTE | 2017-07-11 10:06 | Discharge Instructions ---
Discharge Instructions Date of Service Jul 11, 2017. Admission Reason for Admission: Left Knee Degenerative Joint Disease Discharge Discharge Diagnosis / Problem: left tka Discharge Goals Goal(s): Decrease discomfort, Improve function, Increase independence, Therapeutic intervention Activity Recommendations Activity Limitations: per Instructions/Follow-up section . Instructions / Follow-Up Instructions / Follow-Up ACTIVITY RECOMMENDATIONS: SELF CARE INSTRUCTIONS AFTER TOTAL KNEE REPLACEMENT A. You may need to continue a physical therapy program after discharge from the hospital. There are several options available to you. Your doctor will assist you in selecting the best one for you. 1. An out-patient facility 2 to 3 times a week for therapy or home therapy. 2. Continue working on all exercises taught to you in the hospital. Your goals should be to increase bending of your knee to 90 degrees and beyond and to fully straighten your knee. B. You may progress at your own pace from walking with a walker or crutches to a cane; then to no assistive devices. C. Make walking a part of your daily routine. Be up as much as comfortable with rest periods throughout the day. Rest with leg elevation is very important. Use the ice wrap frequently for the first 3-4 weeks. D. There are no restrictions on activities. You may ride in a car, shop, participate in retail marketing executive and all social activities. E. Wear the long elastic stockings (RENETTA hose) 20 hours a day for 2 weeks after surgery. They can be removed several times a day for laundering and for a bath. F. You may shower, no tub baths until cleared by your doctor. SPECIAL CARE INSTRUCTIONS: VERY IMPORTANT TO READ AND REVIEW A. There are a few signs you need to watch for after you are home. Call [facility] if you notice any of the followin. Increased severe knee pain. Some pain is expected especially when you exercise. 2. Increased swelling in your leg or knee; pain or swelling of the calf muscle in either lower leg. 3. Any fluid drainage from the incision. 4. Shortness of breath or chest pain. B. Please call [facility] at if you have any concerns or questions about your operation or recovery. The doctor or his nurse will return your call promptly. C. You must take antibiotics before dental work, bladder, bowel or other surgery. Your doctor will provide you with a permanent care to carry describing this precaution. IMPORTANT: * REMEMBER TO TAKE lovenox and coumadin until regulated to therapeutic level to resume normal coumadin levels UNLESS OTHERWISE DIRECTED. THIS IS YOUR BLOOD THINNER. * HIGH RISK PATIENTS MAY BE PRESCRIBED A STRONGER BLOOD THINNER. THIS WILL BE PROVIDED AT DISCHARGE. * CALL IF INCREASED PAIN, REDNESS, DRAINAGE OR FEVER GREATER THAT 101. * WEAR RENETTA HOSE 20 HOURS PER DAY FOR 2 WEEKS. * Provena dressing in place IF INCISION IS LEAKING THROUGH DRESSING, CALL THE OFFICE . FOLLOW UP VISIT: If appointment is not already scheduled: Please call [facility] to make a follow-up appointment for 2 weeks after your surgery at . Current Hospital Diet Patient's current hospital diet: Diabetes Type 2 Diet Discharge Diet Recommended Diet: Diabetes Type 2 Diet Procedures Procedures Performed: Left Total Knee arthroplasty,superficial wound vac Pending Studies Studies pending at discharge: no Laboratory Results Hemoglobin A1c Test 06/16/17 13:52 Range/Units Estimated Average Glucose 120 mg/dl Hemoglobin A1c 5.8 H 4.5-5.6 % Medical Emergencies . Who to Call and When: Medical Emergencies: If at any time you feel your situation is an emergency, please call 911 immediately. . Non-Emergent Contact Non-Emergency issues call your: Primary Care Provider . "Provider Documentation" section prepared by Sherin Cho. . [place] Drug Monitoring Program Search Results: patient reviewed within database, no issues identified
[2017-07-11] MEDS ORDERED: RXC5 PO (10:10)
[2017-07-11] MEDS ORDERED: WARF5TAB90 PO (10:10)
[2017-07-11] MEDS ORDERED: LVNIS120 SQ (10:10)
[2017-07-11] MEDS ORDERED: CMD10 PO (10:10)
[2017-07-11 10:59] VITALS: BP 144/80; PULSE 73; TEMP 36.7; O2SAT 97
[2017-07-11] MEDS ORDERED: WARFARIN SOD 10 MG TAB PO ONE (16:00)
--- NOTE | 2017-07-11 18:15 | Progress Note ---
Internal Med Progress Note Date of Service: Jul 11, 2017. Provider Documentation: SUBJECTIVE: The patient was seen and examined S/P Left TKA Minimal pain No other complaints Going to go home today OBJECTIVE: Vital Signs-as noted below Exam: General-No distress at rest Eyes-normal ENT-normal Neck-supple Lungs-Clear to auscultate bilaterally Heart-Regular,no murmur Abdomen-Benign Extremities-trace edema bilaterally Neuro-AAox3 Lab data as noted below. ASSESSMENT & PLAN: Pt post op day# 2 S/P L TKA by Dr Johnson -pain management per ortho,wound management per ortho -PT/OT as appropriate -DVT prophylaxis per ortho -incentive spirometry -monitor H&H -minimally decreased Hb -will recheck in AM-remains stable -medically stable to go HX PE ON COUMADIN Pt had coumadin held, bridged with lovenox for surgery. Denies CP/SOB. Vitals stable. Coumadin clinic note reviewed and recommends coumadin 12.5mg on 07/09/17 & 07/10/17, then 10mg on 07/11/17, then resuming pt's current schedule of 7.5mg MWF , and 5mg all other days. -will dose Coumadin tonight with lovenox bridge until therapeutic. -Monitor INR and dose Coumadin accordingly -will take a few days to stabilize -continue as per Ortho recommendation DM II HA1c 5.8 in 06/2017 -hold metformin -NovoLog sliding scale per protocol -Blood sugar is maintained HTN -continue lisinopril/HCTZ -controlled HYPERLIPIDEMIA -continue atorvastatin DVT Prophylaxis -Lovenox, Coumadin Disposition admitted med/surg Full Code as per discussion with pt Follows with Sohan Post for routine care Medically stable Vital Signs: Date Time Temp Pulse Resp B/P (MAP) Pulse Ox O2 Delivery O2 Flow Rate FiO2 07/11/17 10:59 36.7 73 19 97 Room Air 07/11/17 07:46 36.7 73 19 144/80 (101) 97 Room Air 07/11/17 00:15 Room Air 07/10/17 23:06 36.4 70 16 132/72 (92) 93 Room Air Lab Results: Results Past 24 Hours Test 07/10/17 20:39 07/11/17 06:02 07/11/17 08:02 Range/Units Bedside Glucose 110 89 70-90 mg/dl White Blood Count 7.43 4.8-10.8 K/uL Red Blood Count 3.65 4.2-5.4 M/uL Hemoglobin 10.8 12.0-16.0 g/dL Hematocrit 33.6 37-47 % Mean Corpuscular Volume 92.1 80-100 fL Mean Corpuscular Hemoglobin 29.6 25-34 pg Mean Corpuscular Hemoglobin Concent 32.1 32-36 g/dl RDW Standard Deviation 49.5 36.4-46.3 fL RDW Coefficient of Variation 14.6 11.5-14.5 % Platelet Count 193 130-400 K/uL Mean Platelet Volume 9.4 7.4-10.4 fL Prothrombin Time 17.2 9.0-12.0 SECONDS Prothromb Time International Ratio 1.7 0.9-1.1 Sodium Level 137 136-145 mmol/L Potassium Level 4.3 3.5-5.1 mmol/L Chloride Level 106 98-107 mmol/L Carbon Dioxide Level 21 21-32 mmol/L Anion Gap 10.0 3-11 mmol/L Blood Urea Nitrogen 22 7-18 mg/dl Creatinine 0.63 0.60-1.20 mg/dl Est Creatinine Clear Calc Drug Dose 106.5 ml/min Estimated GFR () 106.8 Estimated GFR (Non- 92.2 BUN/Creatinine Ratio 35.5 10-20 Random Glucose 90 70-99 mg/dl Calcium Level 8.8 8.5-10.1 mg/dl
--- NOTE | 2017-07-26 13:05 | DISCHARGE SUMMARY ---
CHIEF COMPLAINT: Chronic left knee pain. HISTORY OF PRESENT ILLNESS: This is a 67-year-old female patient of Dr. Johnson, complaining of chronic left knee pain, longstanding, now progressively getting worse. The patient has been diagnosed with end-stage osteoarthritis per clinical and radiographic exams and wishes to proceed with a left total knee arthroplasty. PAST MEDICAL HISTORY: History of hypertension, hypercholesterolemia, history of pulmonary embolism, diabetes mellitus, rheumatoid arthritis, osteoarthritis, sciatica and obesity. POSTOPERATIVE COURSE: The patient underwent a left total knee arthroplasty on 07/09/2017. She was followed closely with medical consultation, DVT prophylaxis in the form of Coumadin and Lovenox bridging, physical therapy and pain control. The patient did well postoperatively and was discharged home on postoperative day #2. PHYSICAL EXAMINATION: On discharge, the patient's Prevena wound VAC was clean, dry and intact. It was holding suction very well. There was no redness or drainage. She had no calf tenderness. Negative Homans sign. Neurologically and neurovascularly, she is intact in her left lower extremity. DIAGNOSES: Status post left total knee arthroplasty with a history of hypertension, hypercholesterolemia, pulmonary embolism, diabetes mellitus, rheumatoid arthritis, osteoarthritis, sciatica and obesity. PLAN: The patient was discharged home with home health services. She will continue her Coumadin and Lovenox bridging as per her family physician since she is on it chronically. She will continue her other preadmission medications with the addition of pain medications. The patient will follow up with Dr. Johnson as scheduled as an outpatient.
== END 2017-07-11 12:28 | disposition home health service (06) | DRG 470 ==
LOC: C.ACU 05:15 → C.3E 09:08 → ENRESERV 10:20
PROVIDERS: ADMIT Orthopaedic Surgery Sports Medicine; ATTEND Orthopaedic Surgery Sports Medicine
PROC: 0SRD0J9 Replacement of Left Knee Joint with Synthetic Substitute, Cemented, Open Approach (ICD-10-PCS; principal; 2017-07-09 07:15)
DX: M17.12 Unilateral primary osteoarthritis, left knee (principal); Z68.43 Body mass index [BMI] 50.0-59.9, adult; E78.5 Hyperlipidemia, unspecified; I10 Essential (primary) hypertension; Z86.711 Personal history of pulmonary embolism; E11.9 Type 2 diabetes mellitus without complications; M06.9 Rheumatoid arthritis, unspecified; E66.9 Obesity, unspecified; Z79.84 Long term (current) use of oral hypoglycemic drugs; Z79.01 Long term (current) use of anticoagulants; Z82.49 Family history of ischemic heart disease and other diseases of the circulatory system; Z96.651 Presence of right artificial knee joint